=== PATIENT | female | born 1985 ===

== ENCOUNTER 2022-05-18 11:20 | Emergency (ER) | payer SELFPAY ==
--- NOTE | 2022-05-18 14:27 | Emergency Department Report ---
ED Female HPI - General Chief complaint: Abdominal Pain Stated complaint: PAIN IN OVERIES Time Seen by Provider: 05/18/22 14:23 Source: patient Mode of arrival: Ambulatory Limitations: No Limitations, Language Barrier - History of Present Illness Initial comments: Patient is a 37-year-old female that comes to the ER with ovary pain. As she points to her right flank. She denies fever or chills. Denies nausea vomiting diarrhea. Patient denies any vaginal discharge. Patient denies any vaginal bleeding last menstrual cycle 713. Patient ambulatory, nontoxic [id number] on arrival to ER Are you Now?: No Associated Symptoms: denies other symptoms. denies: vaginal discharge, vaginal bleeding, abdominal pain, nausea/vomiting, fever/chills - Related Data Sexually active: Yes Previous Rx's Medication Instructions Recorded Last Taken Type Amoxicillin [Trimox CAP] 500 mg PO BID #20 capsule 05/18/22 Unknown Rx ED Review of Systems ROS: Stated complaint: PAIN IN OVERIES Other details as noted in HPI Comment: All other systems reviewed and negative ED Past Medical Hx - Past Medical History Previous Medical History?: Yes - Surgical History Past Surgical History?: Yes - Family History Family history: no significant - Social History Smoking Status: Never Smoker Substance Use Type: None - Medications Home Medications: Home Medications Medication Instructions Recorded Confirmed Last Taken Type Amoxicillin [Trimox CAP] 500 mg PO BID #20 capsule 05/18/22 Unknown Rx ED Physical Exam - General Limitations: No Limitations, Language Barrier General appearance: alert, in no apparent distress - Head Head exam: Present: atraumatic, normocephalic - Eye Eye exam: Present: normal appearance - ENT ENT exam: Present: mucous membranes moist - Neck Neck exam: Present: normal inspection - Respiratory Respiratory exam: Present: normal lung sounds bilaterally. Absent: respiratory distress - Cardiovascular Cardiovascular Exam: Present: regular rate, normal rhythm. Absent: systolic murmur, diastolic murmur, rubs, gallop - GI/Abdominal GI/Abdominal exam: Present: soft, normal bowel sounds - Extremities Exam Extremities exam: Present: normal inspection - Back Exam Back exam: Present: normal inspection - Neurological Exam Neurological exam: Present: alert, oriented X3 - Psychiatric Psychiatric exam: Present: normal affect, normal mood - Skin Skin exam: Present: warm, dry, intact, normal color. Absent: rash ED Course Vital Signs 05/18/22 12:17 Temperature 98.2 F Pulse Rate 71 Respiratory 18 Rate Blood Pressure 106/48 [Right] O2 Sat by Pulse 99 Oximetry ED Medical Decision Making - Lab Data Result diagrams: 05/18/22 15:52 05/18/22 15:52 - Medical Decision Making Lab Results 05/18/22 05/18/22 05/18/22 Range/Units 15:52 15:52 Unknown WBC 10.1 (4.5-11.0) K/mm3 RBC 4.82 (3.65-5.03) M/mm3 Hgb 13.8 (10.1-14.3) gm/dl Hct 41.4 (30.3-42.9) % MCV 86 (79-97) fl MCH 29 (28-32) pg MCHC 33 (30-34) % RDW 13.9 (13.2-15.2) % Plt Count 394 (140-440) K/mm3 Sodium 141 (137-145) mmol/L Potassium 4.2 (3.6-5.0) mmol/L Chloride 108.0 H (98-107) mmol/L Carbon Dioxide 18 L (22-30) mmol/L Anion Gap 19 mmol/L BUN 6 L (7-17) mg/dL Creatinine 0.5 L (0.6-1.2) mg/dL Estimated GFR > 60 ml/min BUN/Creatinine Ratio 12 % Glucose 61 L (65-100) mg/dL Calcium 9.3 (8.4-10.2) mg/dL Total Bilirubin 0.30 (0.1-1.2) mg/dL AST 16 (5-40) units/L ALT 13 (7-56) units/L Alkaline Phosphatase 75 (35-129) units/L Total Protein 7.5 (6.3-8.2) g/dL Albumin 4.4 (3.9-5) g/dL Albumin/Globulin Ratio 1.4 % Lipase 23 (13-60) units/L Urine Color Yellow (Yellow) Urine Turbidity Clear (Clear) Urine pH 7.0 (5.0-7.0) Ur Specific [place] 1.020 (1.003-1.030) Urine Protein <15 mg/dl (Negative) mg/dL Urine Glucose (UA) Negative (Negative) mg/dL Urine Ketones 1+ (Negative) mg/dL Urine Blood 1+ (Negative) Urine Nitrite Negative (Negative) Ur Reducing Substances Not Reportable Urine Bilirubin Negative (Negative) Urine Ictotest Not Reportable Urine Urobilinogen 0.0 (<2.0) mg/dL Ur Leukocyte Esterase Negative (Negative) Urine WBC (Auto) 3.0 (0.0-6.0) /HPF Urine RBC (Auto) 3.0 (0.0-6.0) /HPF U Epithel Cells (Auto) 6.0 (0-13.0) /HPF Calcium Oxalate Crystal 1+ Amorphous Crystals 3+ Urine Mucus Few /HPF Urine HCG, Qual Negative (Negative) Vital Signs 05/18/22 12:17 Temperature 98.2 F Pulse Rate 71 Respiratory 18 Rate Blood Pressure 106/48 [Right] O2 Sat by Pulse 99 Oximetry PREG NEG UA NOTED GIVEN PT SYMTPOMS WILL TREAT WITH AMOX DC HOME WITH DC PLAN OF CARE AND PCP FOLLOW UP Patient verbalizes understanding of plan of care including diet, activity, medications and follow-up - Differential Diagnosis RO PREG/UTI Critical care attestation.: If time is entered above; I have spent that time in minutes in the direct care of this critically ill patient, excluding procedure time. ED Disposition Clinical Impression: UTI (urinary tract infection) Disposition: 01 HOME / SELF CARE / HOMELESS Is pt being admited?: No Does the pt Need Aspirin: No Condition: Stable Instructions: Abdominal Pain (ED), Urinary Tract Infection, Adult, [id number] Additional Instructions: Medications as ordered today. At the completion of your antibiotic follow-up with primary care to make sure you are feeling better. I have given you referral below Motrin or Tylenol can be used for pain. Stay well-hydrated with water Referrals: JESSICA GORDON MD [Staff Physician] - 3-5 Days Forms: Work/School Release Form(ED) Time of Disposition: 17:46
[2022-05-18 14:55] LABS: Amorphous Crystals,Urine 3+; Calcium Oxalate Crystals,Urine 1+; Mucus,Urine FEW /HPF
[2022-05-18 14:56] LABS: Bilirubin,Urine Negative (Negative); Blood,Urine 1+ (Negative); Color,Urine Yellow (Yellow)
[2022-05-18 14:57] LABS: HCG Qualitative,Urine Negative (Negative); Protein,Urine <15 mg/dL mg/dL (Negative)
[2022-05-18 16:51] LABS: Hematocrit 41.4 % (30.3-42.9); Hemoglobin 13.8 gm/dl (10.1-14.3); Mean Corpuscular HGB Conc 33 % (30-34); Mean Corpuscular Volume 86 fl (79-97); Platelet Count 394 K/mm3 (140-440); Red Blood Count 4.82 M/mm3 (3.65-5.03); Red Cell Distribution Width 13.9 % (13.2-15.2)
[2022-05-18 17:32] LABS: Alanine Aminotransferase 13 units/L (7-56); Albumin 4.4 g/dL (3.9-5); BUN/Creatinine Ratio 12; Blood Urea Nitrogen 6 mg/dL (7-17); Calcium 9.3 mg/dL (8.4-10.2); Hemolysis Index 8
[2022-05-18 18:29] VITALS: BP 110/68
== END 2022-05-18 18:46 | disposition home or self-care (01) ==
LOC: ED 11:20
DX: N39.0 Urinary tract infection, site not specified (principal); N94.89 Other specified conditions associated with female genital organs and menstrual cycle
CPT/HCPCS: 36415; 80053; 81001; 81025; 83690; 85027; 99283